=== PATIENT | female | born 1990 | race Caucasian/White ===

== ENCOUNTER 2018-11-06 20:10 | Emergency (ER) | payer SELFPAY ==
[~2018-11-06] VITALS: Ht 152.4 cm; Wt 70.4 kg
[~2018-11-06 20:10] MED LIST: ACET1TAB40 PO; ACET500C5 PO; CEPH-443 PO; CODE118S PO; ELEC100080 PO; IBUP-1542 PO; NAPR-985 PO; OFLO5DRO7 RIGHT EAR; SODI75SP NS; UNKNOWN MED
[2018-11-06 20:22] VITALS: Ht 152.4 cm; Wt 70.4 kg
[2018-11-06] MEDS ORDERED: SOD CHLORIDE 0.9% 1,000 ML IV STA (22:49)
[2018-11-06] MEDS ORDERED: ONDANSETRON 4 MG INJ IV STA (22:49)
[2018-11-06] MEDS ORDERED: morphine 4 MG/ML VIAL IV STA (22:49)
--- NOTE | 2018-11-06 22:55 | ERD ---
ER Documentation Chief Complaint Chief Complaint Pelvic pain, bilateral breast "burning" lower back pain X 5 days HPI 28-year-old female presents with lower right and left quadrant abdominal pain for the past 5 days. States she has never had abdominal pain like this before. in addition she had 3 episodes of vomiting vomitus described as nonbilious and nonbloody. She also states that she got her period on October but it was not a full. Rather was just spotting. States that the pain is currently 10 out of 10. Denies any treatments. States that she does have an appetite. Also states she is been having some dysuria. Denies medical problems. Denies allergies. ROS All systems reviewed and are negative except as per history of present illness. Medications Home Meds Active Scripts Hydrocodone/Acetaminophen ([place] 5-325 Tablet) 1 Each Tablet, 1 TAB PO Q6H PRN for PAIN, #10 TAB Prov:MARGIE HDZ 11/07/18 Ibuprofen* (Motrin*) 600 Mg Tab, 600 MG PO Q6 for pain, #30 TAB Prov:MARGIE HDZ 11/07/18 Doxycycline Hyclate* (Doxycycline Hyclate*) 100 Mg Tablet.dr, 100 MG PO BID for PID for 14 Days, TAB Prov:MARGIE HDZ 11/07/18 Naproxen* (Naprosyn*) 500 Mg Tablet, 500 MG PO BID PRN for PAIN AND/OR INFLAMMATION, #30 TAB Prov:JAZLYN SCOTT PA-C 06/11/16 Cephalexin* (Keflex*) 500 Mg Capsule, 500 MG PO QID for 5 Days, CAP Prov:JUDIT ABDI PA-C 11/13/15 Acetaminophen-Codeine* (Acetaminophen-Cod #3*) 300-30 Mg Tab, 1 TAB PO Q4H PRN for PAIN, #10 TAB Prov:VIRGIE HAYNES MD 10/28/15 Ibuprofen* (Motrin*) 600 Mg Tab, 600 MG PO Q6, #14 TAB Prov:VIRGIE HAYNES MD 10/28/15 Ofloxacin* (Floxin* Otic) 0.3% -10 Ml Soln, 5 DROP RIGHT EAR BID for 10 Days, BOTTLE Prov:VIRGIE HAYNES MD 10/28/15 Sodium Chloride/Sod Bicarb (Nasa Mist Saline [place]) 75 Ml [place], 75 ML NS Q6 for 30 Days, SPRAY Prov:BOOGIETIFFANY I. ACCOUNTS ADJUSTABLE CLERK 06/15/15 Promethazine w/Codeine (Phenergan w/Codeine Syrup) 5 Ml Syrup, 5 ML PO Q6 PRN for COUGH for 14 Days, ML Prov:BOOGIETIFFANY I. ACCOUNTS ADJUSTABLE CLERK 06/15/15 Acetaminophen* (Tylophen*) 500 Mg Capsule, 1 CAP PO Q6H PRN for PAIN AND OR ELEVATED TEMP, #20 CAP Prov:JASPER MEJIAS 12/30/14 Electrolyte,Oral (Pedialyte) 1,000 Ml Solution, 100 ML PO Q6 PRN for dehydration for 3 Days, ML Prov:JASPER MEJIAS C 12/30/14 Reported Medications [Unknown Med] No Conflict Check 08/29/10 Allergies Allergies: Coded Allergies: No Known Allergy (Verified , 01/22/12) PMhx/Soc Medical and Surgical Hx: pt denies Medical Hx History of Surgery: Yes (APPENDECTOMY) Anesthesia Reaction: No Hx Neurological Disorder: No Hx Respiratory Disorders: No Hx Cardiac Disorders: No Hx Psychiatric Problems: No Hx Miscellaneous Medical Probl: No Hx Alcohol Use: Yes (SOMETIMES) Hx Substance Use: No Hx Tobacco Use: No Smoking Status: Never smoker FmHx Family History: No diabetes, No coronary disease, No other Physical Exam Vitals Vital Signs Date Temp Pulse Resp B/P (MAP) Pulse Ox O2 O2 Flow FiO2 Time Delivery Rate 11/06/18 98.8 79 18 118/74 97 20:22 (89) Physical Exam Const: No acute distress Head: Atraumatic Eyes: Normal Conjunctiva ENT: Normal External Ears, Nose and Mouth. Neck: Full range of motion. No meningismus. Resp: Clear to auscultation bilaterally Cardio: Regular rate and rhythm, no murmurs Abd: Tenderness to palpation in the lower right lower left quadrants. Suprapubic tenderness. Skin: No petechiae or rashes Back: Mild CVA tenderness. Ext: No cyanosis, or edema Neur: Awake and alert Psych: Normal Mood and Affect Result Diagram: 11/06/18 2250 11/06/18 3647 Results 24 hrs Laboratory Tests Test 11/06/18 22:59 5/6/19 23:08 White Blood Count 10.5 10^3/ul Red Blood Count 4.51 10^6/ul Hemoglobin 13.1 g/dl Hematocrit 41.5 % Mean Corpuscular Volume 92.0 fl Mean Corpuscular Hemoglobin 29.0 pg Mean Corpuscular Hemoglobin Concent 31.6 g/dl Red Cell Distribution Width 13.0 % Platelet Count 446 10^3/UL Mean Platelet Volume 9.4 fl Immature Granulocytes % 0.300 % Neutrophils % 52.4 % Lymphocytes % 39.0 % Monocytes % 6.3 % Eosinophils % 1.3 % Basophils % 0.7 % Nucleated Red Blood Cells % 0.0 /100WBC Immature Granulocytes # 0.030 10^3/ul Neutrophils # 5.5 10^3/ul Lymphocytes # 4.1 10^3/ul Monocytes # 0.7 10^3/ul Eosinophils # 0.1 10^3/ul Basophils # 0.1 10^3/ul Nucleated Red Blood Cells # 0.0 10^3/ul Urine Color DEE DEE Urine Clarity SLIGHTLY CLOUDY Urine pH 5.0 Urine Specific [place] 1.026 Urine Ketones NEGATIVE mg/dL Urine Nitrite NEGATIVE mg/dL Urine Bilirubin NEGATIVE mg/dL Urine Urobilinogen 1+ mg/dL Urine Leukocyte Esterase TRACE Jerri/ul Urine Microscopic RBC 6 /HPF Urine Microscopic WBC 4 /HPF Urine Squamous Epithelial Cells FEW /HPF Urine Hemoglobin 3+ mg/dL Urine Glucose NEGATIVE mg/dL Urine Total Protein NEGATIVE mg/dl Sodium Level 140 mmol/L Potassium Level 4.2 mmol/L Chloride Level 105 mmol/L Carbon Dioxide Level 26 mmol/L Anion Gap 9 Blood Urea Nitrogen 16 mg/dl Creatinine 0.47 mg/dl Est Glomerular Filtrat Rate mL/min > 60 mL/min Glucose Level 97 mg/dl Calcium Level 9.6 mg/dl Total Bilirubin 0.6 mg/dl Direct Bilirubin 0.00 mg/dl Indirect Bilirubin 0.6 mg/dl Aspartate Amino Transf (AST/SGOT) 26 IU/L Alanine Aminotransferase (ALT/SGPT) 35 IU/L Alkaline Phosphatase 69 IU/L Total Protein 7.9 g/dl Albumin 4.4 g/dl Globulin 3.50 g/dl Albumin/Globulin Ratio 1.25 Lipase 177 U/L POC Beta HCG, Qualitative NEGATIVE Current Medications Medications Dose Sig/Jordon Start Time Status Last (Trade) Ordered Route PRN Stop Time Admin Dose Reason Admin Sodium 1,000 ml @ Q1H STAT 11/06/18 DC 11/06/18 Chloride 1,000 mls/hr IV 22:49 11/06/18 23:12 23:48 Morphine 4 mg ONCE STAT 11/06/18 DC 11/06/18 Sulfate IV 22:49 11/06/18 23:15 (morphine) 22:52 Ondansetron 4 mg ONCE STAT 11/06/18 DC 11/06/18 HCl (Zofran IV 22:49 11/06/18 23:12 Inj) 22:52 Sodium 100 ml @ ud STK-MED 11/06/18 DC 11/06/18 Chloride ONCE .ROUTE 23:29 11/06/18 23:57 23:30 Iohexol 150 ml STK-MED 11/06/18 DC 11/06/18 (Omnipaque ONCE .ROUTE 23:29 11/06/18 23:57 300mg/ ml) 23:30 Ceftriaxone 250 mg ONCE ONCE 11/07/18 Sodium IM 01:00 11/07/18 (Rocephin) 01:01 Lidocaine 5 ml ONCE ONCE 11/07/18 (Xylocaine INJ 01:00 11/07/18 1% (Mpf)) 01:01 Doxycycline 100 mg ONCE ONCE 11/07/18 Hyclate PO 01:00 11/07/18 (Vibramycin) 01:01 Procedures/MDM DIAGNOSTIC IMAGING REPORT Patient: OC GUDINO : 1990 Age: 28 Sex: F MR #: [id number] DOS: 11/06/18 2249 Ordering MD: MARGIE HDZ Location: [facility] Room/Bed: PROCEDURE: CT abdomen and pelvis with contrast CLINICAL INDICATION: Abdominal pain TECHNIQUE: Continues 2.5 mm axial images were obtained from the domes of the diaphragms to the inferior pubic rami following intravenous injection of 100 cc of Isovue 300. The calculated dose length product (DLP) = 815.72 mGy-cm. Exam CTDlvol = 13.65 mGy. One or more of the following dose reduction techniques were used: Automated exposure control, adjustment of the mA and or KV according to patient size, or use of iterative reconstruction technique. DICOM images are available. COMPARISON: 12/30/2014 FINDINGS: The lung bases are clear. No pleural pericardial fluid is seen. Liver, gallbladder, pancreas, spleen, adrenals, and kidneys are within normal limits. There is no obstructive uropathy. Aorta is normal in caliber. No pat hologically enlarged mesenteric lymph nodes are seen. The stomach and small bowel loops are within normal limits. There is no small bowel dilatation or obstruction. No free fluid, free air, abscess is noted in the upper abdomen CT pelvis: Images through the pelvis demonstrate no free fluid, free air, abscess. The bladder is partially distended and grossly unremarkable. Uterus is within normal limits. Small follicles/cysts are noted within both ovaries. Evaluation of the colon demonstrates no diverticulosis, diverticulitis or acute colitis. Appendix is surgically absent. Terminal ileum is unremarkable. There are no pathologically enlarged iliac chain lymph nodes. No destructive bony lesions are seen. IMPRESSION: 1. No acute inflammatory process, mass, adenopathy. 2. Status post appendectomy. 3. Small follicles in both ovaries RPTAT: HH .Ramses Bray MD, MD Date Time Electronically viewed and signed by .Ramses Bray MD, MD on 11/07/2018 00:01 .W/ CC: MARGIE HDZ [phone] DIAGNOSTIC IMAGING REPORT Patient: OC GUDINO : 1990 Age: 28 Sex: F MR #: [id number] DOS: 11/06/18 2249 Ordering MD: MARGIE HDZ Location: [facility] Room/Bed: PROCEDURE: US Pelvis. CLINICAL INDICATION: Pelvic pain TECHNIQUE: Transabdominal and transvaginal pelvic ultrasound are performed. COMPARISON: 06/11/2016 FINDINGS: The uterus is normal in echogenicity and anteverted in orientation. The uterus measures 7.3 x 3.6 x 4.6 cm. No focal fibroids are identified. A normal endometrium is identified measuring 1.13 cm. The cervix is normal in appearance. Right ovary is identified, and is normal in appearance. Left ovary is not seen. There are no complex adnexal masses. Normal Doppler flow is noted right ovary. The right ovary measures 3.5 x 2.7 x 2.3 cm There is no free fluid in the pelvis IMPRESSION: 1. Uterus, endometrium, and right ovary are unremarkable. 2. Left ovary not visualized. There are no complex adnexal masses. 3. No free fluid seen RPTAT: HH .Ramses Bray MD, MD Date Time Electronically viewed and signed by .Ramses Bray MD, MD on 11/07/2018 00:04 .W/ CC: MARGIE HDZ [phone] DM: Ultrasound and CT results within normal limits. Patient will be treated for possible PID with ceftriaxone and course of doxycycline. Have low suspicion for ovarian torsion, pyelonephritis, cholecystitis, appendicitis, or any other emergent condition. Patient discharged with strict ER precautions. Patient advised to follow up with PMD. All questions answered at discharge. Departure Diagnosis: Primary Impression: Acute pain in female pelvis Condition: Stable MARGIE HDZ November 06, 2018 22:54
[2018-11-06] MEDS ORDERED: IOHEXOL 300MG/ML 150 ML BTL ONE (23:29)
[2018-11-06] MEDS ORDERED: SOD CHLORIDE 0.9% 100 ML ONE (23:29)
[2018-11-07] MEDS ORDERED: DOXY100T20 PO (00:48)
[2018-11-07] MEDS ORDERED: HYDR-4011 PO (00:49)
[2018-11-07] MEDS ORDERED: IBUP-1542 PO (00:49)
[2018-11-07] MEDS ORDERED: CEFTRIAXONE 250 MG INJ IM ONE (01:00)
[2018-11-07] MEDS ORDERED: LIDOCAINE 1% (MPF) 5 ML VIAL INJ ONE (01:00)
[2018-11-07] MEDS ORDERED: DOXYCYCLINE 100 MG TAB PO ONE (01:00)
[2018-11-07 01:39] VITALS: BP 97/65; PULSE 64; RESP 17
== END 2018-11-07 01:41 | disposition home or self-care (01) ==
LOC: FTE 20:10
DX: R10.2 Pelvic and perineal pain (principal)
CPT/HCPCS: 36415; 74177; 76830; 76856; 80053; 81001; 81025; 83690; 85025; 87086; 96372; 96374; 96375; 99285; J0696; J2270; J2405; J7030; Q9967

== ENCOUNTER 2019-02-02 14:08 | Emergency (ER) | payer MEDICAID ==
[~2019-02-02] VITALS: Ht 154.9 cm; Wt 60.0 kg
[~2019-02-02 14:08] MED LIST changes: +DOXY100T20 PO; +HYDR-4011 PO
[2019-02-02 14:09] VITALS: Ht 154.9 cm; Wt 60.0 kg
--- NOTE | 2019-02-02 14:52 | EN ---
Date/Time of Note Date/Time of Note DATE: 02/02/19 TIME: 14:51 ER Progress Note 28-year-old female with vaginal bleeding for 1-1/2 months. Labs and ultrasound ordered. Work-up initiated KAR PAULINO PA-C Feb 02, 2019 14:52
--- NOTE | 2019-02-02 17:27 | ERD ---
ER Documentation Chief Complaint Chief Complaint VAGINAL BLEEDING 1 1/2 MOS HPI Patient is a 28-year-old female with no known past medical history presenting to the ED with vaginal bleeding for 6 weeks. Patient reports bleeding started during her last menstrual cycle and has been consistent. Patient denies heavy vaginal bleeding, morning diet is mild. Patient denies any pain, fever, chills, night sweats, weakness, fatigue, malaise, vaginal discharge. ROS All systems reviewed and are negative except as per history of present illness. Medications Home Meds Active Scripts Hydrocodone/Acetaminophen ([place] 5-325 Tablet) 1 Each Tablet, 1 TAB PO Q6H PRN for PAIN, #10 TAB Prov:MARGIE HDZ 11/07/18 Ibuprofen* (Motrin*) 600 Mg Tab, 600 MG PO Q6 for pain, #30 TAB Prov:MARGIE HDZ 11/07/18 Doxycycline Hyclate* (Doxycycline Hyclate*) 100 Mg Tablet.dr, 100 MG PO BID for PID for 14 Days, TAB Prov:MARGIE HDZ 11/07/18 Naproxen* (Naprosyn*) 500 Mg Tablet, 500 MG PO BID PRN for PAIN AND/OR INFLAMM ATION, #30 TAB Prov:JAZLYN SCOTT PA-C 06/11/16 Cephalexin* (Keflex*) 500 Mg Capsule, 500 MG PO QID for 5 Days, CAP Prov:JUDIT ABDI-C 11/13/15 Acetaminophen-Codeine* (Acetaminophen-Cod #3*) 300-30 Mg Tab, 1 TAB PO Q4H PRN for PAIN, #10 TAB Prov:VIRGIE HAYNES MD 10/28/15 Ibuprofen* (Motrin*) 600 Mg Tab, 600 MG PO Q6, #14 TAB Prov:VIRGIE HAYNES MD 10/28/15 Ofloxacin* (Floxin* Otic) 0.3% -10 Ml Soln, 5 DROP RIGHT EAR BID for 10 Days, BOTTLE Prov:VIRGIE HAYNES MD 10/28/15 Sodium Chloride/Sod Bicarb (Nasa Mist Saline [place]) 75 Ml [place], 75 ML NS Q6 for 30 Days, SPRAY Prov:TIFFANY BOOGIE NP 06/15/15 Promethazine w/Codeine (Phenergan w/Codeine Syrup) 5 Ml Syrup, 5 ML PO Q6 PRN for COUGH for 14 Days, ML Prov:BOOGIE,TIFFANY Blanca WEI 06/15/15 Acetaminophen* (Tylophen*) 500 Mg Capsule, 1 CAP PO Q6H PRN for PAIN AND OR ELEVATED TEMP, #20 CAP Prov:JASPER MEJIAS C 12/30/14 Electrolyte,Oral (Pedialyte) 1,000 Ml Solution, 100 ML PO Q6 PRN for dehydration for 3 Days, ML Prov:MAGALIE,JASPER C 12/30/14 Reported Medications [Unknown Med] No Conflict Check 08/29/10 Allergies Allergies: Coded Allergies: No Known Allergy (Verified , 02/02/19) PMhx/Soc History of Surgery: Yes (APPENDECTOMY) Anesthesia Reaction: No Hx Neurological Disorder: No Hx Respiratory Disorders: No Hx Cardiac Disorders: No Hx Psychiatric Problems: No Hx Miscellaneous Medical Probl: No Hx Alcohol Use: Yes (SOMETIMES) Hx Substance Use: No Hx Tobacco Use: No Smoking Status: Never smoker FmHx Family History: No diabetes, No coronary disease, No other Physical Exam Vitals Vital Signs Date Temp Pulse Resp B/P (MAP) Pulse Ox O2 O2 Flow FiO2 Time Delivery Rate 02/02/19 98.1 62 18 111/62 99 14:09 (78) Physical Exam Const: No acute distress Head: Atraumatic Resp: Clear to auscultation bilaterally Cardio: Regular rate and rhythm, no murmurs Abd: Soft, non tender, non distended. Normal bowel sounds Psych: Normal Mood and Affect Result Diagram: 02/02/19 1524 02/02/19 1524 Results 24 hrs Laboratory Tests Test 02/02/19 15:19 02/02/19 15:24 02/02/19 15:35 Urine Color YELLOW Urine Clarity CLEAR Urine pH 7.0 Urine Specific [place] 1.020 Urine Ketones NEGATIVE mg/dL Urine Nitrite NEGATIVE mg/dL Urine Bilirubin NEGATIVE mg/dL Urine Urobilinogen NEGATIVE mg/dL Urine Leukocyte Esterase NEGATIVE Jerri/ul Urine Microscopic RBC 173 /HPF Urine Microscopic WBC 3 /HPF Urine Squamous Epithelial Cells FEW /HPF Urine Hemoglobin 3+ mg/dL Urine Glucose NEGATIVE mg/dL Urine Total Protein NEGATIVE mg/dl White Blood Count 8.5 10^3/ul Red Blood Count 4.25 10^6/ul Hemoglobin 12.4 g/dl Hematocrit 39.8 % Mean Corpuscular Volume 93.6 fl Mean Corpuscular Hemoglobin 29.2 pg Mean Corpuscular 31.2 g/dl Hemoglobin Concent Red Cell Distribution Width 13.6 % Platelet Count 480 10^3/UL Mean Platelet Volume 9.3 fl Immature Granulocytes % 0.400 % Neutrophils % 63.3 % Lymphocytes % 28.7 % Monocytes % 5.7 % Eosinophils % 1.2 % Basophils % 0.7 % Nucleated Red Blood Cells % 0.0 /100WBC Immature Granulocytes # 0.030 10^3/ul Neutrophils # 5.4 10^3/ul Lymphocytes # 2.5 10^3/ul Monocytes # 0.5 10^3/ul Eosinophils # 0.1 10^3/ul Basophils # 0.1 10^3/ul Nucleated Red Blood Cells # 0.0 10^3/ul Sodium Level 141 mmol/L Potassium Level 4.2 mmol/L Chloride Level 106 mmol/L Carbon Dioxide Level 27 mmol/L Anion Gap 8 Blood Urea Nitrogen 14 mg/dl Creatinine 0.77 mg/dl Est Glomerular Filtrat > 60 mL/min Rate mL/min Glucose Level 101 mg/dl Calcium Level 9.4 mg/dl Total Bilirubin 0.6 mg/dl Direct Bilirubin 0.00 mg/dl Indirect Bilirubin 0.6 mg/dl Aspartate Amino Transf (AST/SGOT) 25 IU/L Alanine 39 IU/L Aminotransferase (ALT/SGPT) Alkaline Phosphatase 66 IU/L Total Protein 7.2 g/dl Albumin 4.3 g/dl Globulin 2.90 g/dl Albumin/Globulin Ratio 1.48 POC Beta HCG, Qualitative NEGATIVE Procedures/MDM Patient was seen and evaluated for painless vaginal bleeding. CBC, CMP, urinalysis revealed hematuria otherwise unremarkable. negative. Pelvic/abdominal ultrasound revealed Unremarkable pelvic ultrasound. Patient is stable and ready for discharge. Follow-up with MEDICAL DOCTOR MD/MEDICAL DIRECTOR. Patient was advised about menorrhagia. Departure Diagnosis: Primary Impression: Vaginal bleeding Condition: Stable Patient Instructions: Menorrhagia Referrals: [facility] Additional Instructions: Paciente aconseja volver a Departamento de urgencias inmediatamente para sntomas nuevos o que empeoran . Paciente aconseja posteriores con el PCP en 2-3 macedo . Paciente verbaliza la comprehensin y est de acuerdo con el tratamiento y el curso de accin. Si el paciente no tiene ninguna de atencin primaria pueden seguir con [facility] [address] [place] [address] o [facility] + [address] [address] MEAGAN LONG PA-C Feb 02, 2019 17:27
[2019-02-02 17:33] VITALS: BP 126/66; PULSE 79; RESP 18
== END 2019-02-02 17:34 | disposition home or self-care (01) ==
LOC: FTE 14:08
DX: N93.9 Abnormal uterine and vaginal bleeding, unspecified (principal)
CPT/HCPCS: 76856; 80053; 81001; 81025; 85025; 86900; 86901; Z7502